=== PATIENT | female | born 1945 | race Asian ===

== ENCOUNTER 2019-05-10 18:30 | Inpatient (IN) | payer MEDICARE, MEDICAID ==
[~2019-05-10] VITALS: Ht 162.6 cm; Wt 43.1 kg
[2019-05-10 18:33] VITALS: Ht 162.6 cm; Wt 43.1 kg
--- NOTE | 2019-05-10 18:33 | NUR ---
MD ALTMAN AT BEDSIDE PERFORMING MSE
--- NOTE | 2019-05-10 18:33 | NUR ---
PT BIB [facility] AND [facility] FROM HOME WITH C/O ALOC PER SON. PER SON, PER MEDICS, PT WAS "ACTING WEIRD AND HAD NO EATEN FOR TWO DAYS"; PER MEDICS, PT WAS HYPOTENSIVE AT 59/18 UPON ARRIVAL IN RAPID A-FIB WITH BLOOD GLUCOSE IN 60'S. PER MEDICS, PT HAD GCS-6 UPON ARRIVAL. PT WAS PLACED ON 4L 02 NC BY MEDICS PT WAS SATING IN LOW 90'S ON RA. MEDICS STARTED TWO 20 G IV TO BILATERAL FOREARMS. MEDICS GAVE D10 IN 250ML NS WITH ANOTHER 400ML NS IV BOLUS LIBRARY HISTORIAN. UPON ARRIVAL, PT REMAINS ALOC WITH FLEXION TO PAIN AND SCREAMING "POOP". PT UNABLE TO FOLLOW COMMANDS. PT ARRIVED WITH EPISODE OF FECAL AND URINE INCONTINENCE. PT CLEANED AND PLACED IN GOWN. PLACED ON CM; O2, PULSE OX, WITH IV FLUIDS RUNNING. AWAITING MSE
--- NOTE | 2019-05-10 19:20 | NUR ---
REPORT RECIEVED FROM DARLYN MONSON. PT SPEAKING INCOMPREHENSIBLY, RESPONDING TO PAINFUL STIMULI, NOT FOLLOWING COMMANDS. PT LAYING KAITLIN SUPINE POSITION, 2 BED RAILS UP, BED IN LOW AND LOCKED POSITION. MONITORING AT BEDSIDE.
--- NOTE | 2019-05-10 19:21 | NUR ---
GAVE REPORT TO IONA LEON
--- NOTE | 2019-05-10 19:40 | NUR ---
US AT BEDSIDE
--- NOTE | 2019-05-10 19:57 | NUR ---
LEVAQUIN ORDERED. UNABLE TO GIVE AT THIS TIME, AWAITING BLOOD CULTURE DRAW
--- NOTE | 2019-05-10 20:08 | NUR ---
ACCOMPANYING PT TO CT
--- NOTE | 2019-05-10 20:15 | NUR ---
DILIAZEM DRIP TITRATED UP TO 10MG/HR PER MD ORDER
[2019-05-10 20:29] LABS: microscopic required? YES; urine erythrocyte NEGATIVE (NEGATIVE)
[2019-05-10 20:43] LABS: AMPHETAMINE QUAL UR NONE DETECTED (See below)
--- NOTE | 2019-05-10 20:47 | NUR ---
LEVAQUIN STARTED PER MD ORDER. CARDIZEM DRIP TITRATED UP TO 15MG/HR PER MD ORDER
[2019-05-10 20:55] LABS: BASOPHIL % 0 % (0-2); PLATELET COUNT 65 x10^3mcL (130-400); RED CELL DISTRIBUTION WIDTH 15.9 % (11.5-14.5)
[2019-05-10 21:08] LABS: CALCIUM 7.3 mg/dL (8.5-10.1); CHLORIDE SERUM 121 mmol/L (98-107); CREATININE SERUM 2.2 mg/dL (0.6-1.0); GLUCOSE SERUM 172 mg/dL (74-106); POTASSIUM SERUM 3.5 mmol/L (3.5-5.1); SODIUM SERUM 156 mmol/L (136-145)
[2019-05-10 21:15] LABS: ALKALINE PHOSPHATASE 39 U/L (46-116); ALT/SGPT 139 U/L (14-59); AST/SGOT 479 U/L (15-37); BILIRUBIN TOTAL 1.06 mg/dL (0.20-1.00); LIPASE 339 IU/L (73-393); MAGNESIUM 2.4 mg/dL (1.8-2.4); T4(THYROXINE) 7.4 ug/dL (4.7-13.3); TOTAL PROTEIN, SERUM 6.2 g/dL (6.4-8.2)
[2019-05-10 21:18] LABS: ALBUMIN 2.5 g/dL (3.4-5.0); CHOLESTEROL 118 mg/dL (<200); HDL CHOLESTEROL 24 mg/dL (40-60)
--- NOTE | 2019-05-10 21:23 | NUR ---
PT RESTING COMFORTABLY IN BED. PT UNDERSTANDING COMMANDS, SPEAKING IN 2-3 WORD SENTENCES. BED IN LOW AND LOCKED POSITION, 2 BED RAILS UP. SON AT BEDSIDE. HR UNCHANGED FROM TIME OF RECIEVING REPORT, 124 BPM. BP STABLE W/ CARDIZEM DRIP ADMIN. WILL CONTINUE TO MONITOR.
--- NOTE | 2019-05-10 22:07 | NUR ---
NITRO TOPICAL APPLIED PER MD ORDER. CARDIZEM IVP ADMINISTERED IVP OVER 5MINS PER MD ORDER. PT UNABLE TO TAKE ORAL ASPIRIN, MD ORDER. BP STABLE. HR DOWN TO 83 AFTER GROUP INSURANCE SPECIALIST. WILL CONTINUE TO MONITOR.
--- NOTE | 2019-05-10 22:28 | NUR ---
PT AWAKE AND TALKING. MD AT BEDSIDE. PT RESPONDING APPRORIATELY TO MD QUESTIONS. 2 BED RAILS UP, BED IN LOW AND LOCKED POSITION. SON AT BEDSIDE. WILL CONTINUE TO MONITOR
[2019-05-10] MEDS ORDERED: NOR10 PO (22:32)
--- NOTE | 2019-05-10 22:57 | NUR ---
US AT BEDSIDE
--- NOTE | 2019-05-10 22:58 | NUR ---
REPORT GIVEN TO LANDY MONSON
--- NOTE | 2019-05-10 22:58 | NUR ---
Total fluid resuscitation amount ordered for patient is 2500 mls. At time of admission/transfer to ICU, 2230 mls have infused. Last BP was 104/43 and LANDY ROSERN is aware that BP will need to be reassessed after fluid infusion completed.
--- NOTE | 2019-05-10 23:05 | NUR ---
CARDIZEM GTT TITRATED TO 10 MG/HR, HR =82.
--- NOTE | 2019-05-10 23:05 | NUR ---
ULTRASOUND AT BEDSIDE, WILL ADMIT TO ICU WHEN CARDIOLOGY CONSULTANTS DONE WITH PROCEDURE.
--- NOTE | 2019-05-10 23:35 | NUR ---
PT ARRIVED TO ICU BED 6, TRANSFERRED FROM [facility] WITH FULL ASSIST, NO COMPLICATIONS, ATTACHED TO FULL WELDING INSTRUCTOR AND CONTINUOUS PULSE OXIMETRY. RECEIVED PT AOX2 ABLE TO RESPOND TO COMMANDS, MAKE NEEDS KNOWN. PUPILS 3MM BRISK RESPONSE TO LIGHT B/L, PERRLA. NO FACIAL DROOP.TRACHEA MIDLINE, NO DRAINAGE TO EENT. NO EENT COMPLAINTS. HARD OF HEARING BILATERALLY. GLASSES AT BEDSIDE.LUNG SOUNDS COARSE BILATERALLY, CHEST RISE/FALL SYMMETRIC, E/U BREATHING. NO ACUTE RESP DISTRESS, NO SOB AT THIS TIME. PT ON 4LPM NASAL CANNULA INTACT TO PATIENT.AFIB ON WELDING INSTRUCTOR. PT ON CARDIZEM GTT @ 10 MG, TITRATED TO 15 MG/HR, HR 110. S1/S2 SOUNDS. PT DENIES CHEST PAIN WHEN ASKED.SKIN COLOR ALVARADO/CONSISTENT WITH ETHNICITY, CAP REFILL <3 X4 EXTREMITIES, PULSES MODERATE X4 EXTREMITIES. EDEMA TO BLE +1.GEN WEAKNESS. BEDREST AT THIS TIME. WHEELCHAIR WALKER AT BASELINE. NO JOINT SWELLING/TENDERNESS, INTACT. NO CONTRACTURES OR DEFORMITIES NOTED.ACTIVE BOWEL SOUNDS X4 QUADRANTS, ABD SOFT/FLAT/NONTENDER. NO BM. BM REPORTED EARLIER TODAY, NO COMPLAINTS.CHOU CATHETER DRAINING TO GRAVITY, CLEAR YELLOW URINE, INTACT AND SECURED. NO VAGINAL DISCHARGE OR EDEMA NOTED.SKIN COOL/DRY TO TOUCH. IV TO RFA, LFA, PORTS PATENT, NO S/S OF INFILTRATION, DRESSING CDI. SKIN TEAR NOTED TO SACRAL AREA, OPTIFOAM AND ZGUARD PLACED, CDI. SCABS NOTED TO BLE, INTACT, CAMERA REPAIR TECHNICIAN. DISCOLORATION NOTED TO BLE PLANTAR SIDE OF FOOT, CAMERA REPAIR TECHNICIAN, INTACT.PT APPEARS TO BE ANXIOUS TO HOSPITAL STAY, UNCOOPERATIVE WITH EQUIPMENT PLACED ON PT. FAMILY AT BEDSIDE SUPPORTIVE. NO S/S OF N/V. BED AT LOWEST SETTING, CALL LIGTH WITHIN REACH, HOB ELEVATED 30 DEGREES. TEACHING PROVIDED TO PT AND SONS AT BEDSIDE. WILL CONT TO MONITOR.
[2019-05-10 23:49] VITALS: BP 87/64
[2019-05-11 00:02] LABS: PHOSPHOROUS 4.5 mg/dL (2.5-4.9)
[2019-05-11 00:08] LABS: CHOLESTEROL/HDL RATIO 4.7
[2019-05-11 00:09] LABS: FREE T4 1.36 ng/dL (0.76-1.46); FREE THYROXINE INDEX 2.8 ug/dL (1.4-4.5)
--- NOTE | 2019-05-11 00:20 | NUR ---
CARDIZEM GTT TIRATED TO 10 MG/HR, HR =80-85.
[2019-05-11 00:23] LABS: T3 TOTAL 0.49 ng/mL
--- NOTE | 2019-05-11 00:50 | NUR ---
CARDIZEM GTT TITRATED TO 5 MG/HR, HR=85.
--- NOTE | 2019-05-11 01:07 | NUR ---
DR. FERNANDEZ MADE AWARE OF PTS LACTIC OF 3.0, TRENDING DOWN. NO NEW ORDERS AT THIS TIME.
--- NOTE | 2019-05-11 02:50 | NUR ---
CARDIZEM GTT TIRATED TO 10 MG/HR, HR = 95-105
[2019-05-11 03:03] VITALS: BP 92/45
--- NOTE | 2019-05-11 03:05 | NUR ---
DR. FERNANDEZ MADE AWARE OF PT'S NIBP OF 92/45 (53).
--- NOTE | 2019-05-11 03:37 | NUR ---
NIBP 88/30 (49), NS BOLUS 1000 ML ADMINISTERED AT THIS TIME.
--- NOTE | 2019-05-11 04:35 | NUR ---
HR 115, CARDIZEM GTT TITRATED TO 15 MG/HR.
[2019-05-11 04:37] VITALS: BP 112/56
--- NOTE | 2019-05-11 04:37 | NUR ---
1L BOLUS FINISHED, NIBP 112/56 (73).
[2019-05-11 05:01] LABS: BASOPHIL % 0.1 % (0-2)
[2019-05-11 05:05] LABS: PLATELET COUNT 58 x10^3mcL (130-400)
[2019-05-11 05:14] LABS: MAGNESIUM 2.2 mg/dL (1.8-2.4)
[2019-05-11 05:17] LABS: ALKALINE PHOSPHATASE 32 U/L (46-116); ALT/SGPT 118 U/L (14-59); AST/SGOT 486 U/L (15-37); CALCIUM 6.8 mg/dL (8.5-10.1); CHLORIDE SERUM 124 mmol/L (98-107); CREATININE SERUM 1.8 mg/dL (0.6-1.0); GLUCOSE SERUM 127 mg/dL (74-106); POTASSIUM SERUM 3.4 mmol/L (3.5-5.1); SODIUM SERUM 157 mmol/L (136-145)
[2019-05-11 05:33] LABS: ALBUMIN 1.8 g/dL (3.4-5.0); TOTAL PROTEIN, SERUM 4.9 g/dL (6.4-8.2)
--- NOTE | 2019-05-11 05:36 | NUR ---
DR. FERNANDEZ MADE AWARE OF PTS TRENDING UP TROPONIN OF 1.756 PER CRITICAL LAB.
--- NOTE | 2019-05-11 06:30 | NUR ---
CARDIZEM GTT TITRATED TO 10 MG/HR. HR=75-80.
--- NOTE | 2019-05-11 07:13 | NUR ---
GAVE REPORT TO IONA GONZÁLES. UPDATES GIVEN, QUESTIONS ANSWERED.
--- NOTE | 2019-05-11 07:18 | NUR ---
PATIENT'S HR 65. CARDIZEM DRIP TITRATED TO 5 MG/HR.
[2019-05-11 07:30] VITALS: BP 101/43
--- NOTE | 2019-05-11 07:30 | NUR ---
PATIENT AWAKE BUT ORIENTED TO PERSON ONLY WITH SLOW SPEECH. DEEPTI PUPILS WITH BRISK REACTION TO LIGHT. IV SITE TO LFA AND RIGHT WRIST. CARDIZEM DRIP AT 5MG/HR. TELE # 6 READS AFIB AT THIS TIME. HCOU CATH TO GRAVITY DRAINING YELLOW URINE. CALL LIGHT WITHIN REACH. SIDE RAILS UP X3. BED IS AT LOWEST POSITION. THE SON IS AT BEDSIDE.
--- NOTE | 2019-05-11 09:22 | NUR ---
PT WAS SEEN FOR DYSPHAGIA. PT WAS ABLE TO SAFELY SWALLOW PUREE DIET WITH THIN LIQUID WITHOUT S/S OF ASPIRATION. TRIALS OF MS DIET WAS NOT DONE DUE TO DEMINETIA. RECOMMENDATION PUREE DIET WITH THIN LIQUID SMALL BITES NAD SIPS ONLY.
--- NOTE | 2019-05-11 10:05 | NUR ---
DR. JULIO AND DR. TRACY ARE AT BEDSIDE TO SEE THE PATIENT. DOCTORS ARE AWARE OF THE PATIENT'S BP AT THIS TIME 91/38 (54) AND RECHECKED 85/37 (54). HR IN 70S. CARDIZEM DRIP WAS TITRATED FROM 5MG/HR DOWN TO 2.5MG/HR.
--- NOTE | 2019-05-11 10:30 | NUR ---
MEMBERSHIP MANAGER IS AT BEDSIDE FOR ECHO.
[2019-05-11 11:00] VITALS: BP 97/49
--- NOTE | 2019-05-11 11:00 | NUR ---
ISOGEL MATTRESS SET UP FOR THE PATIENT DUE TO LOW SCORE 14 FOR SAMEER SCALE.
--- NOTE | 2019-05-11 11:30 | NUR ---
CARDIZEM DRIP TURNED OFF WITH HR IS IN 70S.
--- NOTE | 2019-05-11 11:55 | NUR ---
MARY, DRAWBRIDGE TENDER FROM [place] CALLED TO THE UNIT ASKING FOR THE PATIENT'S UPDATE. ALL INFORMATION PROVIDED TO MARY. CONCERNS ARE ADDRESSED.
--- NOTE | 2019-05-11 12:40 | NUR ---
CALCULATION REVIEWER IS AT BEDSIDE TO DRAW BLOOD FOR 3RD TROP LEVEL.
--- NOTE | 2019-05-11 13:32 | NUR ---
PATIENT HAS REMOVED BP CUFF. EDUCATION PROVIDED REGARDING DONNING MONIOTRING EQUIPMENT. PATIENT DOES NOT APPEAR TO UNDERSTAND DUE TO COGNITATIVE STATUS. WILL CONTINUE TO EDUCATED AND REORIENT.
--- NOTE | 2019-05-11 13:53 | NUR ---
PHYSICAL THERAPY NOTE: ATTEMPTED TO SEE PATIENT FOR EVALUATION REQUESTED. PATIENT REFUSED AT THIS TIME.
--- NOTE | 2019-05-11 14:09 | NUR ---
PATIENT'S HR A-FIB IN 120'S. CARDIZEM DRIP REINITIATED AT 5 MG/HR.
[2019-05-11 15:28] VITALS: BP 112/48
--- NOTE | 2019-05-11 16:10 | NUR ---
DR. WILLAMS IS AT BEDSIDE ASSESSING THE PATIENT.
--- NOTE | 2019-05-11 16:20 | NUR ---
DR. WILLAMS READ EKG RESULT AND VERBALLY ORDER TO TURN OFF CARDIZEM DRIP.
--- NOTE | 2019-05-11 16:20 | NUR ---
[place] DRIP TURNED OFF PER DR. WILLAMS.
--- NOTE | 2019-05-11 16:55 | NUR ---
RECEIVED A PHONE CALL FROM KEIKO CHAMBERLAIN SCRAP SEPARATOR. PER KEIKO, THE PATIENT WILL BE TRANSFERRED TO [facility] UNIT ROOM 309. CALL [phone] FOR REPORT. MANAGER SUPPORT SERVICES TIME 1929.
--- NOTE | 2019-05-11 17:17 | NUR ---
CALLED [facility] UNIT AND EDDIE, THE CHARGE NURSE ANSWERED THE PHONE. REPORT GIVEN TO EDDIE. CONCERNS WERE ADDRESSED.
--- NOTE | 2019-05-11 17:32 | NUR ---
THE PATIENT'S SON, KINSEY IS AT BEDSIDE AND WAS INFORMED THAT THE PATIENT'S WILL BE TRANSFERRED TO [facility], TELE ROOM 309. PICKUP TIME IS AT 1930. ALSO, THIS MORNING, MARY, CASINO BEVERAGE SERVER ALREADY TALKED TO KINSEY ABOUT THE PATIENT'S TRANSFER TO [place].
[2019-05-11 17:40] VITALS: BP 106/45
--- NOTE | 2019-05-11 17:55 | NUR ---
DR. FLOYD WAS CALLED AND INFORMED THAT THE PATIENT'S URINE OUTPUT WAS ONLY 200ML FOR THE WHOLE SHIFT.
--- NOTE | 2019-05-11 18:10 | NUR ---
KINSEY, THE SON IS AT BEDSIDE AND KEEPS THE PATIENT'S GLASSESS. KINSEY WILL TAKE ALL OF THE PATIENT'S BELONGING HOME WITH HIM.
--- NOTE | 2019-05-11 18:30 | NUR ---
THE PATIENT WAS GIVEN A BED BATH, AND THE PINK GOWN CHANGED FOR THE PATIENT. CHOU CARE PROVIDED TO THE PATIENT.
--- NOTE | 2019-05-11 19:09 | NUR ---
REPORT GIVEN TO MARY WILKINSON RN. CONCERNS ADDRESSED.
--- NOTE | 2019-05-11 19:30 | NUR ---
THE TRANSPORTATION TEAM IS AT BEDSIDE TO CORPORATE LEARNING CONSULTANT THE PATIENT. THE TRANSFER PACKET HANDED TO THE TEAM. REPORT WAS GIVEN TO THE TEAM BY GADIEL, THE CHARGE NURSE. THE IV AT RIGHT WRIST WAS CONVERTED TO [place]. THE PATIENT IS READY TO BE TRANSFERRED TO [facility]. THE PATIENT'S SON, KINSEY WILL GO TO [place] WITH THE PATIENT.
--- NOTE | 2019-05-12 09:51 | NUR ---
WOUND CONSULT NOT DONE. PT. DISCHARGED.
== END 2019-05-11 19:45 | disposition short-term general hospital (02) | DRG 280 ==
LOC: ED 18:30 → IC 22:42
PROVIDERS: Emergency Medicine; ADMIT Internal Medicine
DX: I21.A1 Myocardial infarction type 2 (principal); G93.41 Metabolic encephalopathy; E43 Unspecified severe protein-calorie malnutrition; N17.0 Acute kidney failure with tubular necrosis; J96.01 Acute respiratory failure with hypoxia; I50.43 Acute on chronic combined systolic (congestive) and diastolic (congestive) heart failure; N18.4 Chronic kidney disease, stage 4 (severe); E87.0 Hyperosmolality and hypernatremia; Z68.1 Body mass index [BMI] 19.9 or less, adult; E87.4 Mixed disorder of acid-base balance; I48.2 Chronic atrial fibrillation; G30.9 Alzheimer's disease, unspecified; F02.80 Dementia in other diseases classified elsewhere, unspecified severity, without behavioral disturbance, psychotic disturbance, mood disturbance, and anxiety; D69.6 Thrombocytopenia, unspecified; E86.0 Dehydration; R74.0 Nonspecific elevation of levels of transaminase and lactic acid dehydrogenase [LDH]; R80.9 Proteinuria, unspecified
CPT/HCPCS: 36600; 82962; 83880; 84439; 92526-GN; 92610-GN; G0378; G0480; J1956; J3480; J3490; J7030; J7040; Q0092